=== PATIENT | male | born 1975 | race Caucasian/White ===

== ENCOUNTER 2016-05-18 10:16 | Emergency (ER) | payer OTHER ==
[~2016-05-18] VITALS: Ht 170.2 cm; Wt 75.0 kg
[2016-05-18 10:20] VITALS: BP 145/99; PULSE 72; RESP 16; TEMP 97.8; O2SAT 100
[2016-05-18 10:29] VITALS: O2SAT 100
[2016-05-18 10:30] VITALS: BP 138/78; PULSE 74; RESP 14; O2SAT 100
[2016-05-18] MEDS ORDERED: ASPIRIN 81 MG CHEW TAB PO ONE (10:45)
[2016-05-18] MEDS ORDERED: SODIUM CHLORIDE 0.9% FLUSH 5 ML FLUSH IVF PRN (10:45)
[2016-05-18 10:58] LABS: AUTOMATED NEUTROPHIL # 4.2 TH/MM3 (1.8-7.7); BASOPHIL % 0.6 % (0.0-2.0); EOSINOPHIL # 0.1 TH/MM3 (0-0.4); EOSINOPHIL % 1.2 % (0.0-4.0); HEMATOCRIT 44.1 % (39.0-51.0); HEMO FLAGS DIFF FINAL; LYMPH % 27.2 % (9.0-44.0); LYMPHOCYTE # 1.8 TH/MM3 (1.0-4.8); MEAN CELL VOLUME 89.6 FL (80.0-100.0); MEAN CORPUSCULAR HEMOGLOBIN 30.4 PG (27.0-34.0); MEAN CORPUSCULAR HGB CONC 33.9 % (32.0-36.0); MONO % 7.9 % (0.0-8.0); NEUT % 63.1 % (16.0-70.0); PLATELET COUNT 279 TH/MM3 (150-450); RED BLOOD COUNT 4.92 MIL/MM3 (4.50-5.90); RED CELL DISTRIBUTION WIDTH 12.7 % (11.6-17.2); WHITE BLOOD COUNT 6.7 TH/MM3 (4.0-11.0)
--- NOTE | 2016-05-18 11:06 | PD ---
HPI Chief Complaint: Cardiac Complaint Time Seen by Provider: 10:31 Travel History International Travel<30 days: No Contact w/Intl Traveler<30days: No Traveled to known affect area: No History of Present Illness HPI Patient is a 41-year-old male who presents emergency department with complaint of chest pain. Patient states that his father approximately 6 weeks ago fairly suddenly. Him and his father were quite close. Approximately 3 weeks ago he rolled over in bed and felt a pulling sensation in the chest. Since he has had a burning discomfort in the chest that seems to come and go. States that this is primarily substernal and left-sided. He has not found anything that seems to make the pain better or worse. 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 Patient notices it mostly when he is sitting at home in the evening, at rest. He denies any history of cardiac disease. No sustained shortness of breath, nausea vomiting, diaphoresis. Father from pancreatic infection per patient. [facility] Past Medical History Medical History: Denies Significant Hx Diminished Hearing: No Past Surgical History Surgical History: No Previous Surgery Social History Alcohol Use: Yes (WEEKENDS) Tobacco Use: Yes Substance Use: No Allergies-Medications (Allergen,Severity, Reaction): Coded Allergies: No Known Allergies (Unverified , 05/18/16) Reported Meds & Prescriptions Reported Meds & Active Scripts Active No Active Prescriptions or Reported Medications Review of Systems Except as stated in HPI: all other systems reviewed are Neg Physical Exam Narrative GENERAL: Well-appearing male in no acute distress SKIN: Warm and dry. HEAD: Normocephalic. EYES: No scleral icterus. No injection or drainage. ENT: Mucous membranes pink and moist. NECK: Supple CARDIOVASCULAR: Regular rate and rhythm. No murmur appreciated. RESPIRATORY: No accessory muscle use. Clear to auscultation. Breath sounds equal bilaterally. GASTROINTESTINAL: Abdomen soft, non-tender, nondistended. MUSCULOSKELETAL: No obvious deformities No edema. NEUROLOGICAL: Awake and alert. Normal speech. PSYCHIATRIC: Appropriate mood and affect; insight and judgment normal. Data Data Last Documented VS Vital Signs Date Time Temp Pulse Resp B/P Pulse Ox O2 Delivery O2 Flow Rate FiO2 05/18/16 12:00 62 16 113/72 99 Room Air 05/18/16 10:20 97.8 Orders Electrocardiogram (05/18/16 10:31) Ckmb (Isoenzyme) Profile (05/18/16 10:39) Complete Blood Count With Diff (05/18/16 10:39) Comprehensive Metabolic Panel (05/18/16 10:39) Magnesium (Mg) (05/18/16 10:39) Prothrombin Time / Inr (Pt) (05/18/16 10:39) Act Partial Throm Time (Ptt) (05/18/16 10:39) Troponin I (05/18/16 10:39) Lipase (05/18/16 10:39) Chest, Single Ap (05/18/16 10:39) Ecg Monitoring (05/18/16 10:39) Bilateral Bp Monitoring (05/18/16 10:39) Iv Access Insert/Monitor (05/18/16 10:39) Oximetry (05/18/16 10:39) Aspirin Chew (Aspirin Chew) (05/18/16 10:45) Sodium Chloride 0.9% Flush (Ns Flush) (05/18/16 10:45) CKMB (05/18/16 10:40) CKMB% (05/18/16 10:40) Ckmb (Isoenzyme) Profile (05/18/16 12:40) Troponin I (05/18/16 12:40) CKMB (05/18/16 12:50) CKMB% (05/18/16 12:50) Labs Laboratory Tests Test 05/18/16 05/18/16 10:40 12:50 White Blood Count 6.7 TH/MM3 Red Blood Count 4.92 MIL/MM3 Hemoglobin 15.0 GM/DL Hematocrit 44.1 % Mean Corpuscular Volume 89.6 FL Mean Corpuscular Hemoglobin 30.4 PG Mean Corpuscular Hemoglobin 33.9 % Concent Red Cell Distribution Width 12.7 % Platelet Count 279 TH/MM3 Mean Platelet Volume 9.2 FL Neutrophils (%) (Auto) 63.1 % Lymphocytes (%) (Auto) 27.2 % Monocytes (%) (Auto) 7.9 % Eosinophils (%) (Auto) 1.2 % Basophils (%) (Auto) 0.6 % Neutrophils # (Auto) 4.2 TH/MM3 Lymphocytes # (Auto) 1.8 TH/MM3 Monocytes # (Auto) 0.5 TH/MM3 Eosinophils # (Auto) 0.1 TH/MM3 Basophils # (Auto) 0.0 TH/MM3 CBC Comment DIFF FINAL Differential Comment Prothrombin Time 10.0 SEC Prothromb Time International 0.9 RATIO Ratio Activated Partial 28.9 SEC Thromboplast Time Sodium Level 139 MEQ/L Potassium Level 4.1 MEQ/L Chloride Level 103 MEQ/L Carbon Dioxide Level 27.9 MEQ/L Anion Gap 8 MEQ/L Blood Urea Nitrogen 10 MG/DL Creatinine 1.17 MG/DL Estimat Glomerular Filtration 69 ML/MIN Rate Random Glucose 101 MG/DL Calcium Level 9.2 MG/DL Magnesium Level 2.4 MG/DL Total Bilirubin 0.3 MG/DL Aspartate Amino Transf 58 U/L (AST/SGOT) Alanine Aminotransferase 67 U/L (ALT/SGPT) Alkaline Phosphatase 119 U/L Total Creatine Kinase 742 U/L 376 U/L Creatine Kinase MB 6.2 NG/ML 0.7 NG/ML Creatine Kinase MB % 0.8 % 0.2 % Troponin I LESS THAN 0.02 LESS THAN 0.02 NG/ML NG/ML Total Protein 8.5 GM/DL Albumin 4.6 GM/DL Lipase 140 U/L MDM Medical Decision Making Medical Screen Exam Complete: Yes Emergency Medical Condition: Yes Medical Record Reviewed: Yes Differential Diagnosis 41-year-old male here with complaint of 2-3 weeks of a burning type pain in the chest most notable when he is sitting, relaxing in the evening. Incidentally father approximately 6 weeks ago. Differential includes anxiety, adjustment reaction, grief reaction, atypical chest pain, GERD , gastritis, pancreatitis, hepatobiliary pathology, ACS. Narrative Course Patient placed on monitor, IV established and blood obtained. Given aspirin. Patient is symptom-free at this time. Twelve-lead EKG shows sinus rhythm without notable ST abnormalities, normal intervals. Portal chest x-ray obtained that by my read shows no acute abnormalities. CBC, CMP, lipase, magnesium, CK-MB, troponin, coags were obtained and unremarkable. Serial cardiac enzymes remain negative. Patient will be discharged home. Diagnosis Primary Impression: Atypical chest pain Referrals: Primary Care Physician call for appointment Additional Instructions: Call to establish care with primary care provider. Return to the emergency department for the warning signs discussed. Med/Other Pt SpecificInfo: No Change to Meds Scripts No Active Prescriptions or Reported Meds Disposition: DISCHARGE HOME Condition: Stable Vikki Dumont MD May 18, 2016 11:06
[2016-05-18 11:12] LABS: APTT (PATIENT) 28.9 SEC (24.3-30.1); INTERNATIONAL NORMALIZED RATIO 0.9 RATIO
[2016-05-18 11:22] LABS: ALKALINE PHOSPHATASE 119 U/L (45-117); ALT (GPT) 67 U/L (12-78); ANION GAP 8 MEQ/L (5-15); AST (GOT) 58 U/L (15-37); BICARBONATE 27.9 MEQ/L (21.0-32.0); BLOOD UREA NITROGEN 10 MG/DL (7-18); CHLORIDE 103 MEQ/L (98-107); CREATINE KINASE 742 U/L (39-308); GLOMERULAR FILTRATION RATE 69 ML/MIN (>89); MAGNESIUM 2.4 MG/DL (1.5-2.5); SODIUM (NA) 139 MEQ/L (136-145); TOTAL BILIRUBIN ADULT 0.3 MG/DL (0.2-1.0)
--- NOTE | 2016-05-18 11:26 | RADRPT ---
EXAM DATE/TIME: 05/18/2016 10:56 [facility] COMPARISON: No previous studies available for comparison. INDICATIONS : Patient has had a burning sensation in his chest for three days. MEDICAL HISTORY : None. SURGICAL HISTORY : None. ENCOUNTER: Initial ACUITY: 3 days PAIN SCORE: 0/10 LOCATION: chest FINDINGS: A single view of the chest demonstrates the lungs to be symmetrically aerated without evidence of mas s, infiltrate or effusion. The cardiomediastinal contours are unremarkable. Osseous structures are intact. CONCLUSION: No acute disease. Ulises Christine MD on May 18, 2016 at 11:24 Board Certified Radiologist. This report was verified electronically.
[2016-05-18 11:27] LABS: POTASSIUM 4.1 MEQ/L (3.5-5.1)
[2016-05-18 11:40] LABS: CKMB 6.2 NG/ML (0.5-3.6)
[2016-05-18 12:00] VITALS: BP 113/72; PULSE 62; RESP 16; O2SAT 99
[2016-05-18 13:33] LABS: CREATINE KINASE 376 U/L (39-308)
[2016-05-18 13:45] LABS: CKMB 0.7 NG/ML (0.5-3.6)
[2016-05-18 14:00] VITALS: BP 114/72; PULSE 60; RESP 16; O2SAT 98
--- NOTE | 2016-05-18 14:43 | EKG ---
Date Performed: 05/18/2016 Time Performed: 10:36:40 PTAGE: 41 years EKG: Sinus rhythm NORMAL ECG NO PREVIOUS TRACING DOCTOR: Dillon Smith Interpretating Date/Time 05/18/2016 14:39:36
== END 2016-05-18 14:30 | disposition home or self-care (01) ==
LOC: NEPE 10:16
DX: R07.89 Other chest pain (principal); Z72.0 Tobacco use
CPT/HCPCS: 71010; 80053; 82550; 82552; 83690; 83735; 84484; 85025; 85610; 85730; 93005